=== PATIENT | female | born 1980 | race Caucasian/White ===

== ENCOUNTER 2017-04-12 15:48 | Emergency (ER) | payer SELFPAY ==
[2017-04-12] MEDS ORDERED: Ketorolac Tromethamine 30 MG/ML VIAL ONE (16:07)
[2017-04-12 16:16] LABS: #Basophils 0.1 thou/uL (0.0-0.2); #Eosinphils 0.9 thou/uL (0.0-0.7); #Lymphocytes 3.1 thou/uL (1.20-3.40); #Monocytes 0.7 thou/uL (0.11-0.59); %Basophils 1.6 % (0.0-1.0); %Eosinophils 10.6 % (0.0-10.0); %Lymphocytes 35.2 % (21.0-51.0); %Monocytes 7.5 % (0.0-10.0); Anisocytosis MODERATE=16-30 cells (100X) (0-5/hpf); Elliptocytes SLIGHT = 2-5 cells (100X) (0-1/hpf); Hematocrit 27.1 % (36.0-47.0); Hypochromia MODERATE=16-30 cells (100X) (0-5/hpf); Microcytosis MODERATE=15-30 cells (100X) (0-5/hpf); Red Blood Cell (RBC) Count 3.93 mill/uL (4.20-5.40); White Blood Cell (WBC) Count 8.8 thou/uL (4.8-10.8)
[2017-04-12 16:27] LABS: ALT (SGPT) 21 U/L (8-55); AST (SGOT) 21 U/L (5-34); Alkaline Phosphatase 91 U/L (40-150); Anion Gap 16 mmol/L (10-20); BUN (Urea Nitrogen) 10 mg/dL (7.0-18.7); Bilirubin, Total 0.2 mg/dL (0.2-1.2); Calc. Creatinine Clearance 0 mL/min (70-130); Calcium 8.6 mg/dL (7.8-10.44); Carbon Dioxide 20 mmol/L (22-29); Chloride 107 mmol/L (98-107); Estimated GFR-MDRD 84; Globulin 3.2 g/dL (2.4-3.5); Lipase 31 U/L (8-78)
[2017-04-12 16:34] LABS: Bilirubin Small (Negative); Blood, Urine Small (Negative); Glucose, Urine (Dipstick) Negative (Negative); Ketone, Urine Negative (Negative); Nitrite Negative (Negative); Protein, Urine (Dipstick) 30 mg/dL (Neg-Trace)
[2017-04-12 16:41] LABS: Bacteria/HPF 1+ HPF (None Seen); Hyaline Casts/LPF 0-3 HYALINE CAST LPF (0-3 Hyaline)
[2017-04-12] MEDS ORDERED: Lidocaine 1% 20 ML MDV ONE (17:13)
--- NOTE | 2017-04-12 18:31 | CT ---
ABDOMEN CT WITH CONTRAST PELVIC CT WITH CONTRAST: Date: 04/12/17 COMPARISON: 07/05/10. HISTORY: Abdominal pain. Right abdominal wall pain and swelling x3 days. Right hip pain. TECHNIQUE: Abdomen and pelvic CT are performed with IV contrast. Coronal reformatted images are submitted for i nterpretation. FINDINGS: ABDOMEN CT: Minimal dependent atelectatic change in the lung bases. Heart size is normal. No pericardial effusio n. Descending thoracic aorta and abdominal aorta have a normal caliber. No periaortic fat stranding. Gallbladder is surgically absent. Intra and extrahepatic portal vein is patent. Liver, spleen, pancreas, and adrenal glands have appropriate enhancement. Symmetric enhancement of the kidneys. Bilaterally, no obstructive uropathy. No gastrohepatic, retrocrural, or periportal lymphadenopathy. No mesenteric mass, lymphadenopathy, free air, or free fluid. Limited evaluation of the alimentary canal. No evidence of bowel obstruction. Ileocecal junction is normal. Normal caliber appendix. No evidence of colonic distention or dilatation. PELVIC CT: Uterus and adnexa are grossly unremarkable. Urinary bladder is decompressed. No pelvic mass, lymphad enopathy, free air, or free fluid. Hypodensities in the left adnexal likely represent ovarian follic les. There are no osteoblastic or osteolytic lesions. In the lateral aspect of the right abdomen, there is a mixed attenuation, predominantly hyperdense f ocus measuring 5.4 x 5.5 cm. There is minimal induration of the subcutaneous fat deep to this lesion . The remainder of the peripheral subcutaneous fat does not demonstrate induration. There is minimal induration of the dermis at this level. Differential considerations include a soft tissue hematoma. An enhancing solid mass (56 Hounsfield units attenuation) of the soft tissues, such as sarcoma, can not be excluded. Clinical correlation is essential. Mass corresponds to the region of interest marke d by a palpable marker. IMPRESSION: 1. No acute abnormality in the abdomen or pelvis. 2. Mixed attenuation, intrinsically hyperdense mass in the right soft tissues as detailed above. Di fferential considerations include hematoma versus an enhancing solid mass. Correlate clinically. POS: [facility]
== END 2017-04-12 18:10 | disposition home or self-care (01) ==
LOC: SCSER 15:48
DX: R19.00 Intra-abdominal and pelvic swelling, mass and lump, unspecified site (principal); I10 Essential (primary) hypertension
CPT/HCPCS: 74177; 80053; 81003; 81015; 81025; 83690; 85025; 85060; 96374; 96375; 96376; J1885; J2001; J2270

== ENCOUNTER 2017-10-26 15:38 | Emergency (ER) | payer SELFPAY ==
[2017-10-26] MEDS ORDERED: Ketorolac Tromethamine 60 MG/2 ML VIAL ONE (16:06)
--- NOTE | 2017-10-26 17:29 | RAD ---
LEFT TIBIA/FIBULA TWO VIEWS: HISTORY: Knee pain status post fall. FINDINGS: There are arthritic changes of the knee and some minimal changes of the ankle. There are no signs of fracture. IMPRESSION: No evidence of fracture. POS: [facility]
--- NOTE | 2017-10-26 17:30 | RAD ---
LEFT KNEE FOUR VIEWS: HISTORY: Knee pain status post fall. FINDINGS: There are some arthritic changes of the medial and lateral compartment without significant joint spac e narrowing. There is also patellofemoral degenerative change and a small effusion. No evidence of fracture. IMPRESSION: Arthritic changes of the knee. No definite acute injury. POS: [facility]
--- NOTE | 2017-10-26 17:31 | RAD ---
LUMBAR SPINE SERIES THREE VIEWS: HISTORY: The patient is status post fall with back pain. FINDINGS: There are arthritic changes of the spine with disk narrowing at L3-L4, L4-L5, and L5-S1. No compress ion fracture. The pedicles are intact. IMPRESSION: 1. Arthritic changes of the spine. No acute injury. 2. Postoperative cholecystectomy change. POS: [facility]
== END 2017-10-26 17:01 | disposition home or self-care (01) ==
LOC: ERS 15:38
DX: S83.92XA Sprain of unspecified site of left knee, initial encounter (principal); S39.012A Strain of muscle, fascia and tendon of lower back, initial encounter; I10 Essential (primary) hypertension; W10.9XXA Fall (on) (from) unspecified stairs and steps, initial encounter
CPT/HCPCS: 72100; 96372; J1885

== ENCOUNTER 2018-06-28 16:21 | Emergency (ER) | payer SELFPAY ==
[2018-06-28 17:25] LABS: Bilirubin Negative (Negative); Blood, Urine Negative (Negative); Clarity Hazy (Clear); Glucose, Urine (Dipstick) Negative (Negative); Leukocyte Large (Negative); Nitrite Negative (Negative); Protein, Urine (Dipstick) Negative (Neg-Trace); Urobilinogen 0.2 mg/dL (0.2-1.0); pH, Urine 6.5 (5.0-9.0)
[2018-06-28 17:32] LABS: Bacteria/HPF 2+ HPF (None Seen); RBC/HPF None Seen HPF (0-3); Squamous Epithelial 21-50 HPF (0-3)
[2018-06-28 17:38] LABS: Pregnancy Test - Urine (BHCG) Negative (Negative); Pregu Control Bar Appear? YES (CONTROL BAR)
[2018-06-28 17:39] LABS: Pregu Control Background? CLEAR/WHITE (CLR/WHITE)
[2018-06-28] MEDS ORDERED: Ibuprofen 600 MG TAB ONE (17:48)
[2018-06-29 22:48] LABS: Chlamydia by PCR Not Detected (NotDetected); GC by PCR Not Detected (NotDetected)
== END 2018-06-28 17:55 | disposition home or self-care (01) ==
LOC: SCSER 16:21
DX: N39.0 Urinary tract infection, site not specified (principal); I10 Essential (primary) hypertension
CPT/HCPCS: 81003; 81015; 81025; 87086; 87480; 87491; 87510; 87591; 87660; 99283

== ENCOUNTER 2019-03-19 01:30 | Emergency (ER) | payer SELFPAY ==
[2019-03-19 02:10] LABS: #Basophils 0.1 thou/uL (0.0-0.2); #Eosinphils 0.3 thou/uL (0.0-0.7); #Lymphocytes 3.9 thou/uL (1.20-3.40); #Monocytes 0.6 thou/uL (0.11-0.59); #Neutrophils 4.6 thou/uL (1.40-6.50); %Eosinophils 3.2 % (0.0-10.0); %Lymphocytes 40.8 % (21.0-51.0); %Monocytes 6.5 % (0.0-10.0); %Neutrophils 48.5 % (42.0-75.0); Hemoglobin 8.5 g/dL (12.0-16.0); Mean Corpuscular HGB CONC 30.2 g/dL (32.0-36.0); Mean Corpuscular Hemoglobin 20.8 pg (27.0-31.0); Mean Corpuscular Volume 68.9 fL (78.0-98.0); Mean Platelet Volume 8.9 fL (7.4-10.4); Platelet Count 336 thou/uL (130-400); RBC Distribution Width 16.1 % (11.5-14.5); Red Blood Cell (RBC) Count 4.08 mill/uL (4.20-5.40); White Blood Cell (WBC) Count 9.5 thou/uL (4.8-10.8)
[2019-03-19 02:28] LABS: ALT (SGPT) 10 U/L (8-55); AST (SGOT) 12 U/L (5-34); Albumin 4.4 g/dL (3.5-5.0); Alkaline Phosphatase 82 U/L (40-150); Anion Gap 13 mmol/L (10-20); BUN (Urea Nitrogen) 9 mg/dL (7.0-18.7); Bilirubin, Total 0.3 mg/dL (0.2-1.2); Calc. Creatinine Clearance 0 mL/min (70-130); Calcium 9.4 mg/dL (7.8-10.44); Carbon Dioxide 25 mmol/L (22-29); Chloride 105 mmol/L (98-107); Estimated GFR-MDRD 80; Globulin 3.2 g/dL (2.4-3.5); Glucose 94 mg/dL (70-105); Lipase 26 U/L (8-78); Protein, Total 7.6 g/dL (6.0-8.3); Sodium 139 mmol/L (136-145)
[2019-03-19 02:31] LABS: Bacteria/HPF None Seen HPF (None Seen); Bilirubin Negative (Negative); Blood, Urine 3+ (Negative); Clarity Turbid (Clear); Glucose, Urine (Dipstick) Normal (Negative); Leukocyte 75 Leu/uL (Negative); Nitrite Negative (Negative); Protein, Urine (Dipstick) 30 mg/dL (Neg-Trace); RBC/HPF Greater than 50 HPF (0-3); Squamous Epithelial 0-3 HPF (0-3)
== END 2019-03-19 02:35 | disposition home or self-care (01) ==
LOC: ERS 01:30
DX: D17.1 Benign lipomatous neoplasm of skin and subcutaneous tissue of trunk (principal); I10 Essential (primary) hypertension
CPT/HCPCS: 80053; 81003; 81015; 83690; 85025; 99284